=== PATIENT | male | born 1960 | race Caucasian/White ===

== ENCOUNTER → 2018-08-24 07:32 | Outpatient (CLI) | payer OTHER, SELFPAY ==
[2018-08-24 08:32] LABS: Hemoglobin A1C% w Est Avg Glu 9.1 % (4.0-6.0)
[2018-08-24 09:02] LABS: Alanine Aminotransferase 62 IU/L (21-72); Albumin 4.6 g/dL (3.5-5.0); Albumin Globulin Ratio 1.5 (1.0-2.8); Alkaline Phosphatase 77 U/L (38-126); Aspartate Aminotransferase 52 IU/L (17-59); BUN Creatinine Ratio 21.1 (6-22); Bilirubin Total 0.6 mg/dL (0.2-1.3); Blood Urea Nitrogen 19 mg/dL (9-20); Calcium 10.2 mg/dL (8.4-10.2); Carbon Dioxide 26 mmol/L (22-32); Chloride 104 mmol/L (98-107); Cholesterol 115 mg/dL (140-199); Estimated Glomerular Filt Rate > 60.0 mL/min (>60); Globulin 3.1 g/dL (1.7-4.1); Glucose 181 mg/dL (70-100); HDL Cholesterol 25 mg/dL (40-60); HEMOLYSIS < 15 (0-50); LDL Cholesterol Calculated 28 mg/dL (<100); Potassium 4.6 mmol/L (3.4-5.1); Sodium 143 mmol/L (137-145); Total Protein 7.7 g/dL (6.3-8.2); Triglycerides 309 mg/dL (35-150)
[2018-08-24 09:15] LABS: Creatinine Urine Random 218.7 mg/dL
[2018-08-24 09:17] LABS: Free T3, Triiodothyronine Free 3.92 pg/mL (2.77-5.27); Free T4, Direct Thyroxine 0.84 ng/dL (0.78-2.19); Microalbumi Creatinin Ratio Ur 78.1 ug/mg CR (<30); Microalbumin Urine Random 17.1 mg/dL (0-1.6)
[2018-08-24 09:20] LABS: Vitamin D 25 Hydroxy (D3) 41.1 ng/mL (30.0-100.0)
[2018-08-24 09:31] LABS: Thyroid Stimulating Hormone 7.35 uIU/mL (0.47-4.68)
== END ==
PROVIDERS: PCP Student in an Organized Health Care Education/Training Program; Visit Provider Student in an Organized Health Care Education/Training Program
DX: E11.9 Type 2 diabetes mellitus without complications (principal); Z79.4 Long term (current) use of insulin; I25.10 Atherosclerotic heart disease of native coronary artery without angina pectoris; E03.9 Hypothyroidism, unspecified; E66.01 Morbid (severe) obesity due to excess calories; I10 Essential (primary) hypertension; E55.9 Vitamin D deficiency, unspecified; Z79.899 Other long term (current) drug therapy
CPT/HCPCS: 36415; 80053; 80061; 82043; 82306; 82570; 83036; 84439; 84443; 84481

== ENCOUNTER → 2018-10-12 09:39 | Outpatient (CLI) | payer OTHER, SELFPAY ==
--- NOTE | 2018-10-12 | DI.US.S_ITS ---
PROCEDURE: US ARTERIAL DUPLEX LE BI INDICATIONS: NON HEALING SORE TECHNIQUE: Color and pulse Doppler interrogation was performed of both lower extremity arterial systems, with image documentation. COMPARISON: [facility], , ARTERIAL LOW.EXTREM.BILATERAL, 12/15/2016, 13:08. FINDINGS: Right lower extremity: Common femoral artery: 103 cm/sec, with triphasic flow. Deep femoral artery: 111 cm/sec, with triphasic flow. Proximal superficial femoral artery: 90 cm/sec, with triphasic flow. Mid superficial femoral artery: 163 cm/sec, with triphasic flow. Distal superficial femoral artery: 154 cm/sec, with triphasic flow. Popliteal artery: 171 cm/sec, with triphasic flow. Posterior tibial artery: 203 cm/sec, with triphasic flow. Anterior tibial artery/dorsalis pedis: 221 cm/sec, with nonphasic flow. Plaza-scale imaging description: Moderate scattered plaque. Left lower extremity: Common femoral artery: 116 cm/sec, with triphasic flow. Deep femoral artery: 131 cm/sec, with triphasic flow. Proximal superficial femoral artery: 109 cm/sec, with triphasic flow. Mid superficial femoral artery: 450 cm/sec, with biphasic flow. Distal superficial femoral artery: 76 cm/sec, with biphasic flow. Popliteal artery: 85 cm/sec, with triphasic flow. Posterior tibial artery: 170 cm/sec, with triphasic flow. Anterior tibial artery/dorsalis pedis: 54 cm/sec, with monophasic flow. Plaza-scale imaging description: Moderate scattered plaque. IMPRESSION: 1. 50-99% stenosis involving the mid left superficial femoral artery. 2. Less than 50% stenosis involving the proximal and mid right superficial femoral artery. 3. Bilateral small vessel disease. Dictated by: Bernardo Ortiz [facility] Interpreted: Frankie Grullon MD on 10/13/2018 at 16:19 Approved by: Frankie Grullon M.D. on 10/14/2018 at 11:10
--- NOTE | 2018-10-12 | DI.NM.S_ITS ---
PROCEDURE: NM MEREDITH PERF SPECT REST & STR Rest and exercise myocardial perfusion SPECT with gated imaging and ejection fraction RADIOPHARMACEUTICAL: 14.0 mCi Tc-99m sestamibi IV at rest and 24.8 mCi Tc-99m sestamibi IV at peak exercise. A one day-protocol was performed. 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 SPECT images were obtained. SPECT myocardial perfusion images were displayed in short axis, horizontal long axis, and vertical long axis views. Gated images were reviewed using Deskarma software. COMPARISON: None. CARDIAC STRESS: A standard Ole treadmill exercise tolerance test was performed by the patient under the supervision of an attending staff. The patient exercised for 3 minutes and 19 seconds raching 4.6 METs; functional aerobic impairment (DAVI) is +65% on sedentary scale. Hemodynamic data: There is normal blood pressure and heart rate response to exercise stress. Patient achieved 97% of maximum predicted heart rate at peak exercise. Symptoms: Patient denied chest pain during exercise. Significant dyspnea with exercise. EKG: Resting ECG shows sinus rhythm with RBBB. No diagnostic EKG changes of ischemia; no ectopy. The ST depressions noted by the treadmill ECG reader are part of the RBBB than true ST depressions. FINDINGS: Raw data: There is good myocardial labeling by radiotracer. No significant motion artifacts. Zqyl-tg-[id number] ratio is 0.48 (normal is less than 0.38 for sestamibi tracer, and less than 0.50 for thallium tracer). Left ventricle function: Gated images demonstrate normal left ventricle wall thickening. No segmental wall motion abnormality. No transient ischemic dilation; TID is 1.0 (normal less than 1.3). The left ventricle resting end-diastolic volume is 116 mL. Left ventricle stress ejection fraction is 50% while the resting value is 60%; normal values are above 45%. Myocardial perfusion: There is a small fixed defect at the apex that improves with prone imaging suggesting artifact but prior old infarct can not be excluded. There is a mildly intense fixed defect in the inferior wall that could be from prior non-transmural infarction. No ischemia. SSS 2. IMPRESSION: Abnormal stress test. No ischemia 1) Abnormal perfusion images. There is a small fixed defect at the apex that improves with prone imaging suggesting artifact but prior old infarct can not be excluded. There is a mildly intense fixed defect in the inferior wall that could be from prior non-transmural infarction. No ischemia. SSS 2. 2) Normal left ventricular size with normal systolic function (EF post stress 50%, resting EF 60%). 3) Lung-heart ratio is 0.48, suggesting elevated left side filling pressures. Consider echo for further evaluation. 4) No ECG evidence of ischemia. 5) No angina during the study. Significant dyspnea with exercise. 6) Severely reduced exercies tolerance (4.6 METs, DAVI +65%). Target heart rate achieved. Appropriate blood pressure response to exercise (rest BP 140/80mmHg, max BP 190/98mmHg). 7) No prior nuclear stress test avaliable for comparision. Dictated by: Sid Dominguez MD on 10/12/2018 at 16:59 Approved by: Sid Dominguez MD on 10/12/2018 at 17:08
--- NOTE | 2018-10-12 14:57 | P.PCN_ITS ---
Cardiac Stress Test Report Referral & Results Date Patient Seen: 10/12/18 Time Patient Seen: 14:30 Requesting provider: Sid Dominguez Indication: CAD Procedure Note: Today following both written and verbal informed consent the patient was exercised according to a standard Ole protocol patient went for a total of 3 minutes achieving a maximum heart rate of 159 maximum systolic blood pressure of 190. This is approximately 4.6 METS. Exercise was terminated at this point because of fatigue, dyspnea. Patient was also given Cardiolite through a previously started Hep-Lock IV by the clinical laboratory technician approximately 1 minute prior to the cessation of exercise. Patient had marked dyspnea and fatigue rapidly patient on starting exercise. Very poor exercise capacity. No symptoms of angina. Diffuse ST deviations in multiple leads present at rest and exacerbated exercise. Impression: High risk test. Will await perfusion imaging. Please note: Actual ECG tracings can be found in the PACS system.
== END ==
PROVIDERS: PCP Student in an Organized Health Care Education/Training Program; Visit Provider Internal Medicine Cardiovascular Disease
DX: I70.202 Unspecified atherosclerosis of native arteries of extremities, left leg (principal); R06.00 Dyspnea, unspecified
CPT/HCPCS: 78452; 93016; 93017; 93018; 93925; A9502

== ENCOUNTER → 2018-11-25 07:45 | Outpatient (CLI) | payer OTHER, SELFPAY ==
--- NOTE | 2018-11-25 | DI.ECHO.S_ITS ---
[facility] +---------+ Hospital +---------+ : : [address] : [address] : : : : [id number] : : : : Phone: [phone]+ Echocardiogram Report + + :Name: DUSTIN CUNHA Study Date: 11/25/2018 Height: 71 in : :[facility] Weight: 220 lb : : Gender: Male BSA: 2.2 m2 : :: 1960 Age: 58 yrs BP: 137/73 mmHg: :Reason For Study: DYSPNEA : : Performed By: Juanpablo Delgado : :Referring: AMARJIT DOMINGUEZ : + + Interpretation Summary 1) Normal left ventricular size and systolic function (EF 60-65%). 2) Normal right ventricular size and function. 3) No significant valvular abnormalities. 4) Compared to the Echo done 05/09/2014, no significant change. Procedure: A two-dimensional transthoracic echocardiogram with color flow and Doppler was performed. The study quality was technically good. Comparison is made with the echocardiogram of 05/09/14. The subcostal views were not obtained due to the patient's dense liver. The patient was in normal sinus rhythm during the exam. Left Ventricle: The left ventricle is normal in size. Left ventricular wall thickness is borderline increased. The ejection fraction is estimated to be 60-65%. Basal inferior wall may be hypokinetic (or variant of normal due to echo's limitation). Right Ventricle: The right ventricle is normal in size and function. Atria: Both atria are normal in size. The interatrial septum is intact with no evidence for an atrial septal defect. Mitral Valve: The mitral valve is normal in structure and function. There is trace mitral regurgitation. Aortic Valve: The aortic valve is trileaflet. The aortic valve opens well. There is no aortic valve stenosis. No aortic regurgitation is present. Tricuspid Valve: The tricuspid valve is normal in structure and function. No tricuspid regurgitation. Pulmonary artery pressures cannot be estimated because of the lack of a measurable TR jet velocity. Pulmonic Valve: The pulmonic valve is normal in structure and function. There is trace pulmonic regurgitation. Great Vessels: The aortic root is normal size. The ascending aorta is at the upper limits of normal in size. The pulmonary artery is normal size. The inferior vena cava was not well visualized. Pericardium/ Pleura There is no pericardial effusion. There is no pleural effusion. MMode/2D Measurements & Calculations LVIDd: 4.3 cm LVOT diam: 2.4 cm LVIDs: 2.3 cm Ao root diam: 3.8 cm FS: 47.6 % Aortic Jxn: 3.3 cm EPSS: 0.56 cm asc Aorta Diam: 3.7 cm IVSd: 1.00 cm Ao Arch Diam (Prox Trans): 2.2 cm LVPWd: 1.0 cm LV rob. diameter/BSA (cm/m^2): 2.0 LV sys. diameter/BSA (cm/m^2): 1.0 LA dimension: 3.5 cm RA long axis: 5.4 cm LA A2 area: 21.1 cm2 RA area: 16.5 cm2 LA A4 area: 16.9 cm2 RA vol: 43.0 ml LA length (vol): 5.9 cm RA : 19.6 ml/m2 LA vol: 51.8 ml LA vol index: 23.6 ml/m2 RVD1 (basal): 3.7 cm RVD2 (mid): 4.3 cm Doppler Measurements & Calculations Ao V2 max: 107.9 cm/sec LVOT Max Ab: 83.9 cm/sec Ao V2 mean: 81.3 cm/sec LV V1 max P.8 mmHg Ao max P.7 mmHg LV V1 VTI: 16.9 cm Ao mean P.8 mmHg HEBER(I,D): 3.7 cm2 Ao V2 VTI: 21.2 cm HEBER(V,D): 3.6 cm2 sev ratio: 0.80 HEBER indexed to BSA (cm^2/m^2): 1.7 MV E max ab: 45.3 cm/sec PA V2 max: 71.3 cm/sec MV A max ab: 77.9 cm/sec PA V2 mean: 52.0 cm/sec MV E/A: 0.58 PA mean P.2 mmHg Med Peak E' Ab: 4.1 cm/sec PA pr(Accel): 36.6 mmHg E/E' med: 11.0 PA Accel Time: 0.09 sec Lat Peak E' Ab: 7.9 cm/sec E/E' lat: 5.7 E/e' average: 8.3 MV dec time: 0.20 sec SV(LVOT): 78.6 ml Reading Physician:12:11 PM
== END ==
PROVIDERS: Family Provider Student in an Organized Health Care Education/Training Program; PCP Student in an Organized Health Care Education/Training Program; Visit Provider Internal Medicine Cardiovascular Disease
DX: R06.09 Other forms of dyspnea (principal); I25.10 Atherosclerotic heart disease of native coronary artery without angina pectoris
CPT/HCPCS: 93306

== ENCOUNTER → 2018-11-25 11:00 | Outpatient (CLI) | payer OTHER, SELFPAY ==
[2018-11-25 12:13] LABS: Hemoglobin A1C% w Est Avg Glu 8.4 % (4.0-6.0)
== END ==
PROVIDERS: PCP Student in an Organized Health Care Education/Training Program; Visit Provider Student in an Organized Health Care Education/Training Program
DX: E11.9 Type 2 diabetes mellitus without complications (principal); Z79.4 Long term (current) use of insulin
CPT/HCPCS: 36415; 83036

== ENCOUNTER 2018-12-07 09:14 | Inpatient (IN) | payer OTHER, SELFPAY ==
[2018-12-07] VITALS (15 sets, daily range): BP systolic 108–166; BP diastolic 67–89; PULSE 79–114; RESP 16–28; TEMP 36.8–37.5; O2SAT 89–97; BMI 32.8
--- NOTE | 2018-12-07 09:23 | DI.RAD.S_ITS ---
PROCEDURE: XR CHEST 2V INDICATIONS: Cough and fever TECHNIQUE: 2 views of the chest were acquired. COMPARISON: None. FINDINGS: Surgical changes and devices: None. Lungs and pleura: Patchy consolidation in the left lower lobe and minimal atelectasis versus consolidation in the right lower lobe. No pleural effusions or pneumothorax. Mediastinum: Mediastinal contours are normal. Heart size is normal. Bones and chest wall: No suspicious bony abnormalities. Soft tissues appear unremarkable. IMPRESSION: Focal pneumonia, left lower lobe. Minimal atelectasis versus Consolidation, right lower lobe. Comment: Progress films are recommended until clear. Dictated by: Dwayne Jonas M.D. on 12/07/2018 at 9:41 Approved by: Dwayne Jonas M.D. on 12/07/2018 at 9:42
--- NOTE | 2018-12-07 09:41 | ED.FEVER ---
HPI - Fever General Chief Complaint: Fever Stated Complaint: sob/fever x4 days Time Seen by Provider: 12/07/18 09:23 Source: patient and family Mode of arrival: Wheelchair Limitations: no limitations History of Present Illness HPI Narrative: 58-year-old male here for evaluation of cough, chest congestion, sinus congestion, fevers for the past several days. He states that it started with a upper respiratory infection is now moved to his chest. He denies any chest pain but states that he does get into coughing fits for has a hard time for him to breathe. No sore throat. Has not tried anything for symptoms prior to arrival. No prior underlying lung issues but has had cardiovascular disease. Related Data Home Medications Medication Instructions Recorded Confirmed TRUE METRIX GLUCOSE TEST STRIPS #1 ea 06/17/18 12/07/18 aspirin 81 mg tablet,delayed 81 mg PO DAILY 06/17/18 12/07/18 release Insulin R sliding scale #1 ea 08/31/18 12/07/18 atorvastatin 80 mg PO QPM 12/07/18 12/07/18 cholecalciferol (vitamin D3) 4,000 unit PO DAILY 12/07/18 12/07/18 [Vitamin D3] insulin glargine [Lantus U-100 45 unit SUBCUT BID 12/07/18 12/07/18 Insulin] lisinopril 20 mg PO BID 12/07/18 12/07/18 metoprolol tartrate 25 mg PO BID 12/07/18 12/07/18 multivitamin 1 tab PO DAILY 12/07/18 12/07/18 Previous Rx's Medication Instructions Recorded chlorthalidone 25 mg tablet 12.5 mg PO DAILY #45 tab 11/05/18 metformin 500 mg tablet 1,000 mg PO BID #360 tab 11/05/18 insulin regular human 100 unit/mL 45 unit IM QAC #180 ml 11/12/18 injection solution levothyroxine 50 mcg tablet 50 mcg PO DAILY #90 tab 11/25/18 Allergies Allergy/AdvReac Type Severity Reaction Status Date / Time No Known Drug Allergies Allergy Verified 12/07/18 09:26 Review of Systems Constitutional Constitutional: Reports fever(s) and Denies headache(s) ENT Ears, Nose, Mouth, and Throat: Denies headache(s) Cardiovascular Cardiovascular: Denies chest pain, Denies leg edema, Reports dyspnea and Reports dyspnea on exertion Respiratory Respiratory: Reports cough, Reports pain with cough, Reports dyspnea and Reports dyspnea on exertion Gastrointestinal Gastrointestinal: Denies abdominal pain, Denies nausea and Denies vomiting Genitourinary Genitourinary: Denies dysuria Musculoskeletal Musculoskeletal: Denies myalgias and Denies arthralgias Integumentary/Breasts Skin/Breast: Denies lesions and Denies rash Neurologic Neurologic: Denies confusion and Denies headache(s) Psychiatric Psychiatric: Denies confusion and Denies depression Hematologic/Lymphatic Hematologic/Lymphatic: Denies easy bleeding and Denies easy bruising Patient History Medical History Chicken pox (Resolved) Diabetes insipidus (Chronic ~2001) Diabetes mellitus (Chronic ~2001) Foot pain (Chronic ~1999) Fractures (Resolved) Hearing loss (Chronic ~1994) History of cardiovascular disorder (Chronic ~2013) Hypertension (Chronic ~2013) Hypothyroidism (Chronic) Low testosterone (Chronic) Past heart attack (Resolved ~2013) Pulmonary hypertension (Chronic ~2013) Rheumatic fever (Chronic) Shoulder pain (Chronic) Vision disorder (Chronic) Surgical History History of surgery (Resolved ~02/03/14) Family History (Updated 07/22/18 @ 21:58 by Karen Chamberlain) Father Diabetes mellitus Heart disease Hyperlipidemia Hypertension Mother Heart disease Hyperlipidemia Hypertension Grandfather Heart disease Hyperlipidemia Hypertension Stroke Grandmother Heart disease Hyperlipidemia Hypertension Grandfather Heart disease Grandmother Heart disease Social History household members: significant other Smoking Status: Never smoker alcohol intake: never Family History Father Diabetes mellitus Heart disease Hyperlipidemia Hypertension Mother Heart disease Hyperlipidemia Hypertension Grandfather Heart disease Hyperlipidemia Hypertension Stroke Grandmother Heart disease Hyperlipidemia Hypertension Grandfather Heart disease Grandmother Heart disease Social History household members: significant other Smoking Status: Never smoker alcohol intake: never alcohol intake frequency: 0-2 drinks per day Substance Use Type: does not use Exam Initial Vital Signs Initial Vital Signs: Vital Signs Temperature 98.6 F 12/07/18 09:15 Pulse Rate 91 H 12/07/18 09:15 Respiratory Rate 22 12/07/18 09:15 Blood Pressure 165/67 H 12/07/18 09:15 Pulse Oximetry 93 12/07/18 09:15 Const General: cooperative, well developed and well groomed Orientation: alert, awake and oriented x3 HENMT Head: normal to inspection and normocephalic Resp Effort & Inspection: not labored and tachypneic Cardio Rate: regular rate Rhythm: regular rhythm GI Inspection: non-distended Palpation: soft and No firm Skin Lesions: no lesions Rashes: no rashes Neuro General: alert and awake Cognition: normal cognition Speech: speech normal Extrem General: normal to inspection and capillary refill normal Psych Appearance: grossly normal and well kempt Scores GCS Cuco coma scale eye opening: Spontaneous Cucumber coma scale verbal response: Orientated Cucumber coma scale motor response: Obey commands Cucumber coma scale total score: 15 Course Orders Ordered: ED Orders 12/07/18 12:40 Basic Metabolic Panel Stat Complete Blood Count AUTO DIFF Stat Lactate (Lactic Acid) Stat Procalcitonin Stat 12/07/18 13:28 Blood Culture Stat Acetaminophen (Tylenol) 650 mg PO Q6HR PRN PRN Reason: As Needed for Fever/Mild Pain Last Admin: 12/07/18 14:52 Dose: 650 mg Documented by: JIMMY Albuterol (Ventolin) 2.5 mg INH [id number] PRN PRN Reason: Shortness Of Breath Stop: 12/17/18 14:11 Aspirin (Aspirin Ec) 81 mg PO DAILY [facility] Last Admin: 12/07/18 14:53 Dose: Not Given Documented by: JIMMY Atorvastatin Calcium (Lipitor) 80 mg PO BEDTIME [facility] Bisacodyl (Dulcolax) 10 mg MS DAILY PRN PRN Reason: Constipation Clopidogrel Bisulfate (Plavix) 75 mg PO DAILY [facility] Last Admin: 12/07/18 14:53 Dose: Not Given Documented by: JIMMY Dextrose (D50w) 25 gm IV PRN PRN; Protocol PRN Reason: Hypoglycemia Docusate Sodium (Colace) 100 mg PO BID [facility] Enoxaparin Sodium (Lovenox) 40 mg SUBCUT DAILY [facility] Last Admin: 12/07/18 14:52 Dose: 40 mg Documented by: JIMMY Sodium Chloride (Normal Saline 0.9%) 1,000 mls @ 125 mls/hr IV CONT [facility] Last Infusion: 12/07/18 14:45 Dose: 0 mls/hr Documented by: Infusion: 12/07/18 12:29 Dose: 0 mls/hr Documented by: Admin: 12/07/18 12:19 Dose: 125 mls/hr Documented by: COMFORT Ceftriaxone Sodium/Dextrose (Rocephin) 1 gm in 50 mls @ 100 mls/hr IV Q24H [facility] Last Admin: 12/07/18 14:48 Dose: 100 mls/hr Documented by: JIMMY Azithromycin 250 mg/ Dextrose 250 mls @ 250 mls/hr IV Q24H [facility] Lactated Ringer's (Lactated Ringers) 1,000 mls @ 125 mls/hr IV CONT [facility] Last Admin: 12/07/18 14:45 Dose: 125 mls/hr Documented by: JIMMY Insulin Aspart (Novolog Flexpen) 0 unit SUBCUT [facility]; Protocol Last Admin: 12/07/18 16:33 Dose: 3 unit Documented by: TYRA Cosigned by: WILLIAM Insulin Glargine (Lantus Solostar (Pen)) 45 unit SUBCUT BID [facility] Insulin Human Regular (Humulin R) 45 unit SUBCUT AC [facility] Last Admin: 12/07/18 16:33 Dose: 45 unit Documented by: TYRA Cosigned by: WILLIAM Levothyroxine Sodium (Synthroid) 50 mcg PO 0600 [facility] Lisinopril (Zestril) 20 mg PO BID [facility] Metoprolol Succinate (Toprol Xl) 25 mg PO BID [facility] Morphine Sulfate (Morphine) 2 mg IV Q4HR PRN PRN Reason: Pain, Moderate (4-6) Multivitamins (Tab-A-Dale) 1 tab PO DAILY [facility] Ondansetron HCl (Zofran) 4 mg IV Q8HR PRN PRN Reason: Nausea And Vomiting Sennosides (Senna) 17.2 mg PO BEDTIME [facility] Discontinued Medications Albuterol/Ipratropium (Duoneb) 3 ml INH NOW ONE Stop: 12/07/18 09:42 Last Admin: 12/07/18 09:59 Dose: 3 ml Documented by: SHEYLA Azithromycin (Zithromax) 500 mg PO NOW ONE Stop: 12/07/18 11:03 Last Admin: 12/07/18 12:19 Dose: 500 mg Documented by: COMFORT Influenza Virus Vaccine (Flu Vaccine) 0.5 ml IM .ONCE ONE Stop: 12/07/18 17:25 Last Admin: 12/07/18 17:48 Dose: 0.5 ml Documented by: WARD Vital Signs Vital signs: Vital Signs - 8 hr 12/07/18 10:47 Pulse Rate 114 H Respiratory Rate 28 H Pulse Oximetry 89 L MDM - Fever Lab Data Attestation: I reviewed the patient's lab results. Result diagrams: 12/07/18 14:34 12/07/18 14:34 Labs: Lab Results 12/07/18 Range/Units 09:25 Influenza A & B (PCR) Negative (Negative) Imaging Data Chest x-ray: Radiologist's impression: [address] [address] XRay Report Signed Patient: Chun Toure HMR#: [id number] : 2Acct:[id number] Age/Sex: 58 / MDate of Service: 12/07/18 Loc: ED Accession Number: [id number] Procedure: XR chest 2V Ordering Provider: Jason Hooper D.O. PROCEDURE: XR CHEST 2V INDICATIONS: Cough and fever TECHNIQUE: 2 views of the chest were acquired. COMPARISON: None. FINDINGS: Surgical changes and devices: None. Lungs and pleura: Patchy consolidation in the left lower lobe and minimal atelectasis versus consolidation in the right lower lobe. No pleural effusions or pneumothorax. Mediastinum: Mediastinal contours are normal. Heart size is normal. Bones and chest wall: No suspicious bony abnormalities. Soft tissues appear unremarkable. IMPRESSION: Focal pneumonia, left lower lobe. Minimal atelectasis versus Consolidation, right lower lobe. Comment: Progress films are recommended until clear. Dictated by: Dwayne Jonas M.D. on 12/07/2018 at 9:41 Approved by: Dwayne Jonas M.D. on 12/07/2018 at 9:42 [facility] Narrative Medical decision making narrative: Patient does not meet criteria for healthcare associated pneumonia. Sitting in the ER room patient's oxygen saturations on room air were in the low 90s. He was tachypneic. When we got him up to ambulate around the department his oxygen saturations dropped to the high 80s. He became very dyspneic. Did recover when he sat back down in the bed. He did receive an albuterol neb prior to this which she states only minimally improved his symptoms if at all. Chest x-ray does show left-sided pneumonia. He was given oral azithromycin in the emergency department. Discussed the case with Dr. Aquino. Will admit for further evaluation treatment. Discussed the admission with the patient expressed understanding and agreement. Discharge Plan Departure Patient Disposition: Admitted As Inpatient Clinical Impression: Hypoxia Pneumonia Qualifiers: Pneumonia type: due to unspecified organism Laterality: left Lung location: lower lobe of lung Qualified Code(s): J18.1 - Lobar pneumonia, unspecified organism Discharge Date/Time: 12/07/18 13:07 Admit Date/Time: 12/07/18 11:41 Admit Provider: Celi Aquino
[2018-12-07 09:46] LABS: Influenza A and B by PCR Rapid Negative (Negative)
[2018-12-07] MEDS: ALBUTEROL/IPRATROPIUM 3 ML AMPUL INH (09:59)
[2018-12-07] MEDS: AZITHROMYCIN 250 MG TABLET 500 MG PO (12:19)
[2018-12-07] MEDS: SODIUM CHLORIDE 0.9% 1,000 ML 125 ML IV (12:19)
[2018-12-07 13:06] LABS: Add Manual Diff / Slide Review NO; Basophils Absolute Auto 0 /uL (0-100); Basophils Percent Auto 0.3 % (0-2); Eosinophils Absolute Auto 100 /uL (0-450); Eosinophils Percent Auto 0.8 % (2-4); Hematocrit 39.7 % (41-53); Hemoglobin 13.5 g/dL (13.5-17.5); Lymphocytes Absolute Auto 900 /uL (1100-4500); Lymphocytes Percent Auto 8.7 % (25-40); Mean Corpuscular HGB Conc 34.1 % (30-36); Mean Corpuscular Hemoglobin 30.2 PG (26-34); Mean Corpuscular Volume 88.5 fL (80-100); Monocytes Absolute Auto 1000 /uL (0-900); Monocytes Percent Auto 9.7 % (3-14); Neutrophils Absolute Auto 8000 /uL (1500-7000); Neutrophils Percent Auto 80.5 % (50-75); Platelet Count 409 X10^3/uL (150-400); Red Blood Cell Count 4.48 X10^6/uL (4.5-5.9); Red Cell Distribution Width 13.8 % (11.6-14.8); White Blood Cell Count 9.9 X10^3/uL (4.5-11.0)
[2018-12-07 13:19] LABS: BUN Creatinine Ratio 23.8 (6-22); Blood Urea Nitrogen 19 mg/dL (9-20); Calcium 9.9 mg/dL (8.4-10.2); Carbon Dioxide 30 mmol/L (22-32); Chloride 90 mmol/L (98-107); Estimated Glomerular Filt Rate > 60.0 mL/min (>60); Glucose 171 mg/dL (70-100); HEMOLYSIS < 15 (0-50); Lactate (Lactic Acid) 2.3 mmol/L (0.7-2.1); Potassium 4.2 mmol/L (3.4-5.1); Sodium 135 mmol/L (137-145)
--- NOTE | 2018-12-07 14:15 | PM.HP.1 ---
History of Present Illness History of Present Illness Date Patient Seen: 12/07/18 Chief complaint: sob/fever x4 days Narrative: The patient is a 58-year-old male with a history of type 1 diabetes, complicated by diabetic neuropathy, hypertension, hypothyroidism, pulmonary hypertension, who was in his usual state of health until about 4 5 days ago. His had a URI which resolved in 1-2 days. Patient developed URI but then developed a persistent cough, nonproductive, fever, shortness of breath, and difficulty breathing. Patient had no hemoptysis. No headache. No runny nose, no sore throat aS he continued to have significant coughing with associated chest pain he was short of breath with minimal exertion. The patient was brought into the emergency room for evaluation. In the emergency room was found to have a left lower lobe infiltrate. The patient was found to have a room air sat of 90%. When the ambulated him he desaturated to 89%. His lactate was elevated at 2.3, patient was tachycardic with heart rate of 101, and given the hypoxia the patient was admitted to the hospital for further evaluation and treatment of community-acquired pneumonia. Patient History Medical History Chicken pox (Resolved) Diabetes insipidus (Chronic ~2001) Diabetes mellitus (Chronic ~2001) Foot pain (Chronic ~1999) Fractures (Resolved) Hearing loss (Chronic ~1994) History of cardiovascular disorder (Chronic ~2013) Hypertension (Chronic ~2013) Hypothyroidism (Chronic) Low testosterone (Chronic) Past heart attack (Resolved ~2013) Pulmonary hypertension (Chronic ~2013) Rheumatic fever (Chronic) Shoulder pain (Chronic) Vision disorder (Chronic) Surgical History History of surgery (Resolved ~02/03/14) Family History (Updated 07/22/18 @ 21:58 by Karen Chamberlain) Father Diabetes mellitus Heart disease Hyperlipidemia Hypertension Mother Heart disease Hyperlipidemia Hypertension Grandfather Heart disease Hyperlipidemia Hypertension Stroke Grandmother Heart disease Hyperlipidemia Hypertension Grandfather Heart disease Grandmother Heart disease Social History household members: significant other Smoking Status: Never smoker alcohol intake: never Family & Social History Family History Father Diabetes mellitus Heart disease Hyperlipidemia Hypertension Mother Heart disease Hyperlipidemia Hypertension Grandfather Heart disease Hyperlipidemia Hypertension Stroke Grandmother Heart disease Hyperlipidemia Hypertension Grandfather Heart disease Grandmother Heart disease Social History: household members significant other Prior Living Arrangements Apartment/Condo Safety & Behavioral: Feels Safe in Current Yes Environment Been Physically Hurt or No Threatened By a Person Suicidal Ideation Description None Suicide Plan Description No Plan Tobacco & Substance use: Smoking Status Never smoker alcohol intake never alcohol intake frequency 0-2 drinks per day Substance Use Type does not use Meds Home Medications and Allergies Home Medications Medication Instructions Recorded Confirmed Type TRUE METRIX GLUCOSE TEST STRIPS #1 ea 06/17/18 12/07/18 History aspirin 81 mg tablet,delayed 81 mg PO DAILY 06/17/18 12/07/18 History release Insulin R sliding scale #1 ea 08/31/18 12/07/18 History chlorthalidone 25 mg tablet 12.5 mg PO DAILY #45 tab 11/05/18 12/07/18 Rx metformin 500 mg tablet 1,000 mg PO BID #360 tab 11/05/18 12/07/18 Rx insulin regular human 100 unit/mL 45 unit IM QAC #180 ml 11/12/18 12/07/18 Rx injection solution levothyroxine 50 mcg tablet 50 mcg PO DAILY #90 tab 11/25/18 12/07/18 Rx atorvastatin 80 mg PO QPM 12/07/18 12/07/18 History cholecalciferol (vitamin D3) 4,000 unit PO DAILY 12/07/18 12/07/18 History [Vitamin D3] insulin glargine [Lantus U-100 45 unit SUBCUT BID 12/07/18 12/07/18 History Insulin] lisinopril 20 mg PO BID 12/07/18 12/07/18 History metoprolol tartrate 25 mg PO BID 12/07/18 12/07/18 History multivitamin 1 tab PO DAILY 12/07/18 12/07/18 History Allergies Allergy/AdvReac Type Severity Reaction Status Date / Time No Known Drug Allergies Allergy Verified 12/07/18 09:26 Review of Systems Review of Systems ROS Unobtainable: All systems reviewed & are unremarkable except as noted in HPI and below Exam Vital Signs (past 8 hours): - 12/07/18 09:15 12/07/18 10:05 12/07/18 10:14 Temperature 98.6 F Pulse Rate 91 H 102 H 95 H Respiratory Rate 22 20 20 Blood Pressure 165/67 H Blood Pressure [Left Arm] Pulse Oximetry 93 90 L 12/07/18 10:47 12/07/18 12:30 12/07/18 13:00 Temperature 99.5 F Pulse Rate 114 H 105 H 106 H Respiratory Rate 28 H 22 18 Blood Pressure 153/87 H Blood Pressure [Left Arm] 166/71 H Pulse Oximetry 89 L 91 92 12/07/18 13:20 12/07/18 13:40 12/07/18 14:04 Temperature 98.7 F Pulse Rate 106 H Respiratory Rate 18 Blood Pressure 153/87 H Blood Pressure [Left Arm] Pulse Oximetry 89 L 93 93 Oxygen Delivery Method Nasal Cannula Oxygen Flow Rate 2 Narrative Exam Narrative: Pleasant male ill-appearing resting comfortably in no obvious distress HEENT: Normocephalic atraumatic, extraocular muscles are intact, oropharynx reveals dry mucous membranes neck is supple, there is mildly tender anterior cervical adenopathy on the right. Lungs: Decreased breath sounds with scattered basilar rhonchi bilateral Cardiac exam: Tachycardic regular rate and rhythm normal S1-S2 Abdomen: Soft nontender nondistended without appreciable hepatosplenomegaly no rebound tenderness or board-like rigidity Extremities: And no edema Neuro exam: Cranial nerves 2-12 are intact, strength is symmetric and equal, sensation is grossly if attack, reflexes are brisk and equal gait is not assessed Skin exam: Multiple abrasions, bruising on the lower extremities bilaterally Psychiatric exam: Patient is awake alert and oriented, answers questions appropriately, has no delusions, no evidence of hallucinations. Objective Labs Result Diagrams: 12/07/18 12:40 12/07/18 12:40 Labs: Laboratory Results - last 24 hr 12/07/18 12/07/18 12/07/18 09:25 12:40 12:40 WBC 9.9 RBC 4.48 L Hgb 13.5 Hct 39.7 L MCV 88.5 MCH 30.2 MCHC 34.1 RDW 13.8 Plt Count 409 H Neut % (Auto) 80.5 H Lymph % (Auto) 8.7 L [place] % (Auto) 9.7 Eos % (Auto) 0.8 L Baso % (Auto) 0.3 Neut # (Auto) 8000 H Lymph # (Auto) 900 L [place] # (Auto) 1000 H Eos # (Auto) 100 Baso # (Auto) 0 Sodium Potassium Chloride Carbon Dioxide BUN Creatinine Estimated GFR BUN/Creatinine Ratio Glucose Lactate Calcium Procalcitonin 0.10 Influenza A & B (PCR) Negative 12/07/18 12/07/18 12:40 12:40 WBC RBC Hgb Hct MCV MCH MCHC RDW Plt Count Neut % (Auto) Lymph % (Auto) [place] % (Auto) Eos % (Auto) Baso % (Auto) Neut # (Auto) Lymph # (Auto) [place] # (Auto) Eos # (Auto) Baso # (Auto) Sodium 135 L Potassium 4.2 Chloride 90 L Carbon Dioxide 30 BUN 19 Creatinine 0.80 Estimated GFR > 60.0 BUN/Creatinine Ratio 23.8 H Glucose 171 H Lactate 2.3 H Calcium 9.9 Procalcitonin Influenza A & B (PCR) Assessment & Plan Assessment & Plan narrative: Impression 1. 58-year-old male admitted to the hospital with acute hypoxic respiratory failure secondary to community-acquired pneumonia. Patient presented with cough, fever, elevated lactate, he is tachycardic, given the hypoxia, patient likely has severe sepsis, secondary to community-acquired pneumonia. Chest x-ray confirms a left lower lobe infiltrate. Patient received 1 dose of azithromycin in the emergency room. He will be treated with IV ceftriaxone plus azithromycin, will continue IV hydration, will repeat his serum lactate, will obtain a respiratory panel, his influenza a and B have been negative thus far. Patient will remain on oxygen, will utilize albuterol as needed for wheezing. 2. Acute hypoxic respiratory failure, secondary to community-acquired pneumonia, continue oxygen and antibiotics 3. Type 1 diabetes, complicated by diabetic polyneuropathy, will continue his usual home dosing of insulin 4. Hypertension, continue his lisinopril and metoprolol 5. History of coronary disease, status post myocardial infarction, patient will continue on his aspirin, statin, beta-lu. 6. Hyperlipidemia, continue high-dose statin 7. Hypothyroidism, continue L-thyroxine Patient is a full code will note that his record accordingly.
[2018-12-07] MEDS: LACTATED RINGERS 1,000 ML 125 ML IV ×2 (14:45→23:49)
[2018-12-07 14:48] LABS: Add Manual Diff / Slide Review NO; Basophils Absolute Auto 0 /uL (0-100); Basophils Percent Auto 0.5 % (0-2); Eosinophils Absolute Auto 0 /uL (0-450); Eosinophils Percent Auto 0.5 % (2-4); Hematocrit 38.5 % (41-53); Hemoglobin 13.2 g/dL (13.5-17.5); Lymphocytes Absolute Auto 900 /uL (1100-4500); Lymphocytes Percent Auto 9.3 % (25-40); Mean Corpuscular HGB Conc 34.1 % (30-36); Mean Corpuscular Hemoglobin 29.9 PG (26-34); Mean Corpuscular Volume 87.7 fL (80-100); Monocytes Absolute Auto 800 /uL (0-900); Monocytes Percent Auto 8.9 % (3-14); Neutrophils Absolute Auto 7600 /uL (1500-7000); Neutrophils Percent Auto 80.8 % (50-75); Platelet Count 400 X10^3/uL (150-400); Red Blood Cell Count 4.39 X10^6/uL (4.5-5.9); Red Cell Distribution Width 13.7 % (11.6-14.8); White Blood Cell Count 9.5 X10^3/uL (4.5-11.0)
[2018-12-07] MEDS: CEFTRIAXONE 1 GM/50 ML FROZ.PIGGY IV (14:48)
[2018-12-07] MEDS: ENOXAPARIN 40 MG/0.4 ML SYRINGE SUBCUT (14:52)
[2018-12-07] MEDS: ACETAMINOPHEN 325 MG TABLET 650 MG PO ×2 (14:52→20:30)
[2018-12-07 14:58] LABS: Lactate (Lactic Acid) 2.3 mmol/L (0.7-2.1)
[2018-12-07 14:59] LABS: BUN Creatinine Ratio 21.3 (6-22); Blood Urea Nitrogen 17 mg/dL (9-20); Calcium 9.7 mg/dL (8.4-10.2); Carbon Dioxide 29 mmol/L (22-32); Chloride 90 mmol/L (98-107); Estimated Glomerular Filt Rate > 60.0 mL/min (>60); Glucose 192 mg/dL (70-100); HEMOLYSIS < 15 (0-50); Potassium 3.8 mmol/L (3.4-5.1); Sodium 134 mmol/L (137-145)
[2018-12-07 15:02] LABS: Reflexed Lactate in 2 Hours Y
--- NOTE | 2018-12-07 15:36 | PC.NURSE ---
Day Shift- Report from ED rec'd by RN Coordinator Carlos. Pt arrived to unit at 1300 into room 215 via stretcher. pt able to walk from stretcher to bed. Pt wanted to keep his sweatpants on and leave a shirt off due to being warm. oriented pt to call light, bed controls, IVF, need to ask for assistance with OOB movement. Pt reports 5/10 pain to anterior headache, ribs, lungs with coughing. Pt not producing any sputum at this time, aware of need for sputum sample. PRN Tylenol given at 1452. Evening RN aware to get RVP. Pt stated along with his Significant Other Lori (Jennyfer Simms) that she would be his surrogate decision maker if he was unable.
[2018-12-07] MEDS: INSULIN REGULAR 100 UNIT/ML 3 ML VIAL 45 UNIT SUBCUT (16:33)
[2018-12-07] MEDS: INSULIN ASPART 100 UNIT/ML INSULN PEN SUBCUT ×2 (16:33→20:45)
[2018-12-07 16:40] LABS: Reflexed Lactate in 2 Hours Y
[2018-12-07 17:35] LABS: Lactate 2HR (Lactic Acid Rflx) 1.6 mmol/L (0.7-2.1)
[2018-12-07] MEDS: INFLUENZA VACCINE 0.5 ML SYRINGE IM (17:48)
[2018-12-07 18:31] LABS: Adenovirus Not Detected (Not Detect); Bordetella pertussis Not Detected (Not Detect); Chlamydophila pneumoniae Not Detected (Not Detect); Coronavirus 229E Not Detected (Not Detect); Coronavirus HKU1 Not Detected (Not Detect); Coronavirus NL 63 Not Detected (Not Detect); Coronavirus OC43 Not Detected (Not Detect); Human Metapneumovirus Not Detected (Not Detect); Human Rhinovirus/Enterovirus Not Detected (Not Detect); Influenza A Not Detected (Not Detect); Influenza B Not Detected (Not Detect); Mycoplasma pneumoniae Detected (Not Detect); Parainfluenza Virus 1 Not Detected (Not Detect); Parainfluenza Virus 2 Not Detected (Not Detect); Parainfluenza Virus 3 Not Detected (Not Detect); Parainfluenza Virus 4 Not Detected (Not Detect); Respiratory Syncytial Virus Not Detected (Not Detect)
[2018-12-07] MEDS: ATORVASTATIN 20 MG TABLET 80 MG PO (20:31)
[2018-12-07] MEDS: INSULIN GLARGINE 100 UNIT/ML 3ML PEN 45 UNIT SUBCUT (20:45)
[2018-12-07] MEDS: LISINOPRIL 20 MG TABLET PO (20:50)
[2018-12-07] MEDS: BENZONATATE 100 MG CAPSULE 200 MG PO (22:08)
[2018-12-08] VITALS (13 sets, daily range): BP systolic 148–165; BP diastolic 86–93; PULSE 95–113; RESP 16–20; TEMP 36.3–36.9; O2SAT 88–96
[2018-12-08] MEDS: METOPROLOL ER 25 MG TABLET PO ×2 (04:56→21:24)
--- NOTE | 2018-12-08 05:23 | PC.NURSE ---
Pt. did not sleep last night. Hypertensive this morning 166/102 & rechecked B/P 150/90 & HR. 110. FRANCI David notified & informed Metoprolol 25 ER 2100 dose was held 12/07/18 Order received to administer 0900 dose of Metoprolol done & decreased IVF LR to 100 cc/hr done. Denies any pain or discomfort. Will monitor.
[2018-12-08] MEDS: LEVOTHYROXINE 50 MCG TABLET PO (05:43)
[2018-12-08] MEDS: guaiFENesin ER 600 MG TAB PO ×2 (05:44→18:34)
[2018-12-08] MEDS: ENOXAPARIN 40 MG/0.4 ML SYRINGE SUBCUT (08:31)
[2018-12-08] MEDS: ASPIRIN EC 81 MG TABLET PO (08:32)
[2018-12-08] MEDS: CLOPIDOGREL 75 MG TABLET PO (08:32)
[2018-12-08] MEDS: INSULIN ASPART 100 UNIT/ML INSULN PEN SUBCUT ×4 (08:34→21:25)
[2018-12-08] MEDS: INSULIN REGULAR 100 UNIT/ML 3 ML VIAL 45 UNIT SUBCUT ×3 (08:35→17:01)
[2018-12-08] MEDS: INSULIN GLARGINE 100 UNIT/ML 3ML PEN 45 UNIT SUBCUT ×2 (08:37→21:27)
[2018-12-08] MEDS: MULTIVITAMIN 1 TABLET 1 TAB PO (09:05)
[2018-12-08] MEDS: LISINOPRIL 20 MG TABLET PO ×2 (09:05→21:24)
[2018-12-08] MEDS: LACTATED RINGERS 1,000 ML 100 ML IV (09:07)
--- NOTE | 2018-12-08 11:34 | CM.DANOTE ---
DCP: Case received, EMR reviewed and met with patient. Introduced self and role. Was able to meet with patient and obtain some baseline health and activity information. DCP assessment/template completed with information currently available. Patient is a 58 year old male who admitted yesterday morning to the care of the hospitalist team. PCP: Dr. Ledezma. Payer: confirmed: [facility]. Patient came to the hospital via private vehicle from Thursday. He had been having some increased coughing and shortness of breath, as well as a fever for the past couple of days. Patient holds diagnosis of Pneumonia. He also has history of type 1 diabetes, as well as neuropathy. According to patient, his significant had an upper respiratory infection that she was getting over. Met with patient in his room. Alert and oriented, was coughing when this transit planner arrived. He is on oxygen currently. Prior to illness, confirmed with patient that he is independent at his baseline, and resides with his partner, Lori. Confirmed that his primary care provider is Dr. Ledezma at [facility]. P: DCP to continue to follow closely. Anticipate that patient will be here for the next couple of days. He is currently working with respiratory therapy. Carmen Del Valle, RN/Sheet Finisher
[2018-12-08] MEDS: AZITHROMYCIN 250 MG in DEXTROSE 5% IN WATER 250 ML IV (12:01)
--- NOTE | 2018-12-08 12:15 | PC.NURSE ---
Dr. Aquino saw patient. Patient states he feels less short of breath but chest feels tight. Dr. Aquino would like patient to have Albuterol treatment. RT notified. Patient NC removed per . Continuing to monitoring O2 sat and will reapply if under 92%
[2018-12-08 14:08] LABS: B Type Natriuretic Peptide < 100 (<100)
[2018-12-08 14:16] LABS: Procalcitonin 0.07 ng/mL (<0.5)
--- NOTE | 2018-12-08 14:53 | P.PN_ITS ---
Subjective Subjective Date Patient Seen: 12/08/18 Interval history: Patient is a 58-year-old male who was admitted to the hospital for left lower lobe pneumonia. His respiratory smear was positive for mycoplasma. The patient continues to have a cough, he is still short of breath, he continues to require some oxygen. Overall he feels a bit better. However he does report decreased appetite and is not eating very much. He still remains short of breath. Exam Vital Signs (past 8 hours): - 12/08/18 08:00 12/08/18 09:00 12/08/18 09:05 Temperature 97.4 F L Pulse Rate 95 H Respiratory Rate 16 Blood Pressure 165/92 H 165/92 H Pulse Oximetry 93 93 12/08/18 09:37 12/08/18 11:00 12/08/18 11:59 Temperature 97.4 F L Pulse Rate 101 H Respiratory Rate 18 Blood Pressure 148/90 H Pulse Oximetry 93 88 L 93 Oxygen Delivery Method Nasal Cannula Oxygen Flow Rate 1 Narrative Exam Narrative: Ill-appearing male resting in bed Lungs: Decreased breath sounds with diffuse rhonchi and crackles bilaterally Cardiac exam: Regular rate and rhythm normal S1-S2 Abdomen: Soft nontender nondistended without hepatosplenomegaly Extremities: No edema Objective Labs Result Diagrams: 12/07/18 14:34 12/07/18 14:34 Labs: Laboratory Results - last 24 hr 12/07/18 12/07/18 12/07/18 14:34 14:34 14:34 WBC 9.5 RBC 4.39 L Hgb 13.2 L Hct 38.5 L MCV 87.7 MCH 29.9 MCHC 34.1 RDW 13.7 Plt Count 400 Neut % (Auto) 80.8 H Lymph % (Auto) 9.3 L [place] % (Auto) 8.9 Eos % (Auto) 0.5 L Baso % (Auto) 0.5 Neut # (Auto) 7600 H Lymph # (Auto) 900 L [place] # (Auto) 800 Eos # (Auto) 0 Baso # (Auto) 0 Sodium 134 L Potassium 3.8 Chloride 90 L Carbon Dioxide 29 BUN 17 Creatinine 0.80 Estimated GFR > 60.0 BUN/Creatinine Ratio 21.3 Glucose 192 H Lactate 2.3 H Calcium 9.7 B-Natriuretic Peptide Procalcitonin Chlamy pneumoniae PCR Adenovirus (PCR) B.parapertussis DNA PCR Coronavirus OC43 (PCR) Coronavirus HKU1 (PCR) Coronavirus 229E (PCR) Coronavirus NL63 (PCR) Human Metapneumovir PCR Influenza Type A (PCR) Influenza Type B (PCR) M. pneumoniae (PCR) Parainfluenza 1 (PCR) Parainfluenza 2 (PCR) Parainfluenza 3 (PCR) Parainfluenza 4 (PCR) RSV (PCR) Entero/Rhino (PCR) 12/07/18 12/07/18 12/08/18 16:00 17:15 13:30 WBC RBC Hgb Hct MCV MCH MCHC RDW Plt Count Neut % (Auto) Lymph % (Auto) [place] % (Auto) Eos % (Auto) Baso % (Auto) Neut # (Auto) Lymph # (Auto) [place] # (Auto) Eos # (Auto) Baso # (Auto) Sodium Potassium Chloride Carbon Dioxide BUN Creatinine Estimated GFR BUN/Creatinine Ratio Glucose Lactate 1.6 Calcium B-Natriuretic Peptide Procalcitonin 0.07 Chlamy pneumoniae PCR Not detected Adenovirus (PCR) Not detected B.parapertussis DNA PCR Not detected Coronavirus OC43 (PCR) Not detected Coronavirus HKU1 (PCR) Not detected Coronavirus 229E (PCR) Not detected Coronavirus NL63 (PCR) Not detected Human Metapneumovir PCR Not detected Influenza Type A (PCR) Not detected Influenza Type B (PCR) Not detected M. pneumoniae (PCR) Detected H Parainfluenza 1 (PCR) Not detected Parainfluenza 2 (PCR) Not detected Parainfluenza 3 (PCR) Not detected Parainfluenza 4 (PCR) Not detected RSV (PCR) Not detected Entero/Rhino (PCR) Not detected 12/08/18 13:30 WBC RBC Hgb Hct MCV MCH MCHC RDW Plt Count Neut % (Auto) Lymph % (Auto) [place] % (Auto) Eos % (Auto) Baso % (Auto) Neut # (Auto) Lymph # (Auto) [place] # (Auto) Eos # (Auto) Baso # (Auto) Sodium Potassium Chloride Carbon Dioxide BUN Creatinine Estimated GFR BUN/Creatinine Ratio Glucose Lactate Calcium B-Natriuretic Peptide < 100 Procalcitonin Chlamy pneumoniae PCR Adenovirus (PCR) B.parapertussis DNA PCR Coronavirus OC43 (PCR) Coronavirus HKU1 (PCR) Coronavirus 229E (PCR) Coronavirus NL63 (PCR) Human Metapneumovir PCR Influenza Type A (PCR) Influenza Type B (PCR) M. pneumoniae (PCR) Parainfluenza 1 (PCR) Parainfluenza 2 (PCR) Parainfluenza 3 (PCR) Parainfluenza 4 (PCR) RSV (PCR) Entero/Rhino (PCR) Assessment & Plan Assessment & Plan narrative: Impression 1. Acute hypoxemic respiratory failure, secondary to pneumonia. The patient is making improvement. He still requires oxygen as at times he will desaturate. He is getting nebulizer treatment as well. 2. Community-acquired pneumonia secondary to mycoplasma. The patient ceftriaxone will be discontinued. He will continue azithromycin. 3. Type 1 diabetes, suboptimal control. Will continue his home regimen. Suspect increasing blood sugars related to his underlying illness 4. Hypertension, present on admission will continue his usual home medications but hold chlorthalidone in the hospital. 5. Coronary disease status post myocardial infarction. Continue usual home medication 6. Hyperlipidemia, continue atorvastatin 7. Hypothyroidism, continue L-thyroxine Anticipate the patient will be able to be discharged home once he is no longer hypoxic on room air. Will continue azithromycin oxygen nebulizer treatments for now.
[2018-12-08] MEDS: LACTATED RINGERS 1,000 ML 84 ML IV ×2 (16:11→21:34)
[2018-12-08] MEDS: ATORVASTATIN 20 MG TABLET 80 MG PO (21:23)
[2018-12-08] MEDS: DOCUSATE 100 MG CAPSULE PO (21:24)
[2018-12-08] MEDS: SENNOSIDES 8.6 MG TABLET 17.2 MG PO (21:25)
[2018-12-09] VITALS (7 sets, daily range): BP systolic 135–160; BP diastolic 79–94; PULSE 71–95; RESP 16–20; TEMP 36.5–36.9; O2SAT 91–95
[2018-12-09] MEDS: ACETAMINOPHEN 325 MG TABLET 650 MG PO ×2 (02:06→06:30)
--- NOTE | 2018-12-09 02:50 | PC.NURSE ---
Pt. sleeping now after medicated with 650 mg. of Tylenol for KAMARA. Continue to cough intermittently, but to early for cough medications @ 0200. Will cont. POC & monitor.
[2018-12-09] MEDS: LEVOTHYROXINE 50 MCG TABLET PO (05:59)
[2018-12-09 07:01] LABS: Add Manual Diff / Slide Review NO; Basophils Absolute Auto 100 /uL (0-100); Basophils Percent Auto 0.6 % (0-2); Eosinophils Absolute Auto 200 /uL (0-450); Eosinophils Percent Auto 2.2 % (2-4); Hematocrit 37.7 % (41-53); Hemoglobin 12.8 g/dL (13.5-17.5); Lymphocytes Absolute Auto 1300 /uL (1100-4500); Lymphocytes Percent Auto 14.6 % (25-40); Mean Corpuscular HGB Conc 33.9 % (30-36); Mean Corpuscular Hemoglobin 30.4 PG (26-34); Mean Corpuscular Volume 89.7 fL (80-100); Monocytes Absolute Auto 800 /uL (0-900); Monocytes Percent Auto 9.4 % (3-14); Neutrophils Absolute Auto 6500 /uL (1500-7000); Neutrophils Percent Auto 73.2 % (50-75); Platelet Count 426 X10^3/uL (150-400); Red Blood Cell Count 4.21 X10^6/uL (4.5-5.9); Red Cell Distribution Width 13.6 % (11.6-14.8); White Blood Cell Count 8.9 X10^3/uL (4.5-11.0)
[2018-12-09 07:09] LABS: BUN Creatinine Ratio 18.6 (6-22); Blood Urea Nitrogen 13 mg/dL (9-20); Calcium 9.9 mg/dL (8.4-10.2); Carbon Dioxide 30 mmol/L (22-32); Chloride 98 mmol/L (98-107); Estimated Glomerular Filt Rate > 60.0 mL/min (>60); Glucose 141 mg/dL (70-100); HEMOLYSIS < 15 (0-50); Potassium 3.8 mmol/L (3.4-5.1); Sodium 137 mmol/L (137-145)
--- NOTE | 2018-12-09 09:03 | PM.DS.1 ---
History of Present Illness History of Present Illness Chief complaint: sob/fever x4 days Narrative: The patient is a 58-year-old male with a history of type 1 diabetes, complicated by diabetic neuropathy, hypertension, hypothyroidism, pulmonary hypertension, who was in his usual state of health until about 4 5 days ago. His had a URI which resolved in 1-2 days. Patient developed URI but then developed a persistent cough, nonproductive, fever, shortness of breath, and difficulty breathing. Patient had no hemoptysis. No headache. No runny nose, no sore throat aS he continued to have significant coughing with associated chest pain he was short of breath with minimal exertion. The patient was brought into the emergency room for evaluation. In the emergency room was found to have a left lower lobe infiltrate. The patient was found to have a room air sat of 90%. When the ambulated him he desaturated to 89%. His lactate was elevated at 2.3, patient was tachycardic with heart rate of 101, and given the hypoxia the patient was admitted to the hospital for further evaluation and treatment of community-acquired pneumonia. Discharge Providers Provider Date of admission: 12/07/18 11:41 Discharge Date: 12/09/18 Primary care physician: Chun Ledezma MD Consults: 12/07/18 13:40 Consult to Respiratory Therapy Evaluate & Treat Comment: Physician Instructions: Evaluate and treat Discharge provider: Celi Aquino MD Summary Hospital Course Discharge Diagnosis: 1. Acute hypoxic respiratory failure, present on admission 2. Mycoplasma pneumonia, present on admission 3. Type 1 diabetes, chronic 4. Hyperlipidemia 5. Hypertension 6. Hypothyroidism Hospital Course: The patient is a 58-year-old male with a history of type 1 diabetes, hyperlipidemia, hypertension, hypothyroidism who was ill for 4-5 days prior to admission. He presented with acute respiratory hypoxic failure. O2 sats were 89% with ambulation. The patient was found to have a left lower lobe pneumonia. Respiratory virus pills were positive for mycoplasma. Patient was treated with azithromycin. He continued to have a cough and some shortness of breath. He required nebulizer treatments. The patient received Mucinex which help with his sputum. He also had improvement in his oxygenation. Overall his appetite improved. Patient was deemed appropriate for discharge home. Exam Vital Signs (past 8 hours): - 12/09/18 04:15 12/09/18 07:35 Temperature 97.7 F 97.7 F Pulse Rate 73 71 Respiratory Rate 20 17 Blood Pressure 135/79 147/84 H Pulse Oximetry 94 94 Oxygen Delivery Method Nasal Cannula Oxygen Flow Rate 1 Narrative Exam Narrative: Pleasant male resting comfortably in no obvious distress, room air saturation 94% at rest Lungs: Decreased breath sounds, clear without rhonchi crackles or wheezes Cardiac exam: Regular rate and rhythm normal S1-S2 Abdomen: Soft nontender nondistended Extremities: No edema Objective Labs Result Diagrams: 12/09/18 06:35 12/09/18 06:35 Labs: Laboratory Results - last 24 hr 12/08/18 12/08/18 12/09/18 13:30 13:30 06:35 WBC 8.9 RBC 4.21 L Hgb 12.8 L Hct 37.7 L MCV 89.7 MCH 30.4 MCHC 33.9 RDW 13.6 Plt Count 426 H Neut % (Auto) 73.2 Lymph % (Auto) 14.6 L [place] % (Auto) 9.4 Eos % (Auto) 2.2 Baso % (Auto) 0.6 Neut # (Auto) 6500 Lymph # (Auto) 1300 [place] # (Auto) 800 Eos # (Auto) 200 Baso # (Auto) 100 Sodium Potassium Chloride Carbon Dioxide BUN Creatinine Estimated GFR BUN/Creatinine Ratio Glucose Calcium B-Natriuretic Peptide < 100 Procalcitonin 0.07 12/09/18 06:35 WBC RBC Hgb Hct MCV MCH MCHC RDW Plt Count Neut % (Auto) Lymph % (Auto) [place] % (Auto) Eos % (Auto) Baso % (Auto) Neut # (Auto) Lymph # (Auto) [place] # (Auto) Eos # (Auto) Baso # (Auto) Sodium 137 Potassium 3.8 Chloride 98 Carbon Dioxide 30 BUN 13 Creatinine 0.70 Estimated GFR > 60.0 BUN/Creatinine Ratio 18.6 Glucose 141 H Calcium 9.9 B-Natriuretic Peptide Procalcitonin Discharge Plan Discharge Plan Patient Disposition: Home Discharge Med Rec/Prescriptions Prescriptions: New benzonatate 100 mg Capsule 200 mg PO TID PRN (Reason: Cough) 5 Days RF: 0 guaifenesin [Mucus Relief ER] 600 mg Tablet Extended Release 12hr 600 mg PO Q12HR PRN (Reason: Cough) Qty: 5 RF: 0 azithromycin 250 mg tablet 250 mg PO DAILY 5 Days RF: 0 albuterol sulfate 90 mcg/actuation HFA aerosol inhaler 1 inhalation INHALATION QID PRN (Reason: shortness of breath) 7 Days Qty: 8 RF: 0 Continued chlorthalidone 25 mg tablet 12.5 mg PO DAILY Qty: 45 RF: 1 metformin 500 mg tablet 1,000 mg PO BID Qty: 360 RF: 1 Novolin R Regular U-100 Insuln 100 unit/mL solution 45 unit IM QAC Qty: 180 RF: 5 levothyroxine 50 mcg tablet 50 mcg PO DAILY Qty: 90 RF: 3 aspirin 81 mg tablet,delayed release (DR/EC) 81 mg PO DAILY RF: 0 metoprolol tartrate 25 mg Tablet 25 mg PO BID RF: 0 multivitamin Tablet 1 tab PO DAILY RF: 0 cholecalciferol (vitamin D3) [Vitamin D3] 2,000 unit Capsule 4,000 unit PO DAILY RF: 0 atorvastatin 80 mg tablet 80 mg PO QPM RF: 0 Lantus U-100 Insulin 100 unit/mL solution 45 unit SUBCUT BID RF: 0 lisinopril 40 mg tablet 20 mg PO BID RF: 0 No Action (DME) TRUE METRIX GLUCOSE TEST STRIPS Qty: 1 RF: 0 (DME) Insulin R sliding scale Qty: 1 RF: 0 Follow up/Referrals: Chun Ledezma MD [Primary Care Provider] - Provider Discharge Instructions Diet: Carb-consistent/Diabetic, Low-sodium and Low-cholesterol Activity: as tolerated Oxygen: not indicated Skin/Wound/Dressing Care Report to your healthcare provider any signs of infection, such as:: chills, fever and night sweats Discharge Data Primary Care Provider: Chun Ledezma
[2018-12-09] MEDS: LISINOPRIL 20 MG TABLET PO (10:39)
[2018-12-09] MEDS: MULTIVITAMIN 1 TABLET 1 TAB PO (10:39)
[2018-12-09] MEDS: METOPROLOL ER 25 MG TABLET PO (10:41)
[2018-12-09] MEDS: CLOPIDOGREL 75 MG TABLET PO (10:41)
[2018-12-09] MEDS: ASPIRIN EC 81 MG TABLET PO (10:41)
[2018-12-09] MEDS: INSULIN GLARGINE 100 UNIT/ML 3ML PEN 45 UNIT SUBCUT (10:43)
[2018-12-09] MEDS: INSULIN REGULAR 100 UNIT/ML 3 ML VIAL 45 UNIT SUBCUT (10:45)
[2018-12-09] MEDS: guaiFENesin ER 600 MG TAB PO (12:58)
--- NOTE | 2018-12-09 15:05 | PC.NURSE ---
DISCHARGE: PATIENT DC'D W/ ALL BELONGINGS, PAPERWORK AND SCRIPTS AND PRIORITY BOARDING PASS TO THURSDAY HARBOR WITH SPOUSE AFTER FULL REVIEW OF ALL DC INSTRUCTIONS W/ PATIENT. LEFT BY WC AT 1340 IN NO S/SX'S OF DISTRESS.
== END 2018-12-09 13:40 | disposition home or self-care (01) | DRG 871 ==
LOC: ED 11:06 → AC 11:42
PROVIDERS: Admitting Provider Internal Medicine; Emergency Provider Emergency Medicine; PCP Student in an Organized Health Care Education/Training Program; Visit Provider Internal Medicine
DX: A41.9 Sepsis, unspecified organism (principal); J96.01 Acute respiratory failure with hypoxia; J15.7 Pneumonia due to Mycoplasma pneumoniae; R65.20 Severe sepsis without septic shock; E10.42 Type 1 diabetes mellitus with diabetic polyneuropathy; Z79.4 Long term (current) use of insulin; E03.9 Hypothyroidism, unspecified; I10 Essential (primary) hypertension; I27.20 Pulmonary hypertension, unspecified; I25.10 Atherosclerotic heart disease of native coronary artery without angina pectoris; E78.5 Hyperlipidemia, unspecified
CPT/HCPCS: 36415; 71046; 80048; 82962; 83605; 83880; 84145; 85025; 87040; 87400; 87502; 87633; 90471; 90656; 94640; 94762; 96361; 96365; 96372; 99283; 99284; J1650; Q2038

== ENCOUNTER → 2018-12-16 10:08 | Outpatient (CLI) | payer OTHER, SELFPAY ==
[2018-12-07 13:20] VITALS: BMI 32.8
[2018-12-16 12:36] LABS: Creatinine Urine Random 81.4 mg/dL
[2018-12-16 12:40] LABS: Microalbumi Creatinin Ratio Ur 63.8 ug/mg CR (<30); Microalbumin Urine Random 5.2 mg/dL (0-1.6)
== END ==
PROVIDERS: PCP Student in an Organized Health Care Education/Training Program; Visit Provider Student in an Organized Health Care Education/Training Program
DX: E11.9 Type 2 diabetes mellitus without complications (principal); Z79.4 Long term (current) use of insulin
CPT/HCPCS: 82043; 82570

== ENCOUNTER → 2019-03-03 09:20 | Outpatient (CLI) | payer MEDICARE, SELFPAY ==
[2019-01-24 08:42] VITALS: BMI 32.8
[2019-03-03 09:53] LABS: Hemoglobin A1C% w Est Avg Glu 8.1 % (4.0-6.0)
[2019-03-03 09:58] LABS: Hematocrit 45.2 % (41-53); Hemoglobin 15.3 g/dL (13.5-17.5); Mean Corpuscular HGB Conc 33.9 % (30-36); Mean Corpuscular Hemoglobin 30.3 PG (26-34); Mean Corpuscular Volume 89.2 fL (80-100); Platelet Count 273 X10^3/uL (150-400); Red Blood Cell Count 5.07 X10^6/uL (4.5-5.9); Red Cell Distribution Width 14.6 % (11.6-14.8); White Blood Cell Count 8.6 X10^3/uL (4.5-11.0)
[2019-03-03 10:18] LABS: Blood Urea Nitrogen 17 mg/dL (9-20); Estimated Glomerular Filt Rate > 60.0 mL/min (>60)
== END ==
PROVIDERS: PCP Student in an Organized Health Care Education/Training Program; Visit Provider Student in an Organized Health Care Education/Training Program
DX: E11.21 Type 2 diabetes mellitus with diabetic nephropathy (principal); D63.8 Anemia in other chronic diseases classified elsewhere; Z79.4 Long term (current) use of insulin
CPT/HCPCS: 36415; 82565; 83036; 84520; 85027

== ENCOUNTER → 2019-11-09 11:08 | Outpatient (CLI) | payer MEDICARE, SELFPAY ==
[2019-01-24 08:42] VITALS: BMI 32.8
[2019-11-09 12:57] LABS: Hemoglobin A1C% w Est Avg Glu 8.1 % (4.0-6.0)
[2019-11-09 13:03] LABS: Blood Urea Nitrogen 16 mg/dL (9-20); Calcium 9.8 mg/dL (8.4-10.2); Carbon Dioxide 26 mmol/L (22-32); Chloride 102 mmol/L (98-107); Estimated Glomerular Filt Rate > 60.0 mL/min (>60); Glucose 148 mg/dL (70-100); HEMOLYSIS < 15 (0-50); Potassium 4.1 mmol/L (3.4-5.1); Sodium 139 mmol/L (137-145)
== END ==
PROVIDERS: PCP Student in an Organized Health Care Education/Training Program; Referring Provider Student in an Organized Health Care Education/Training Program; Visit Provider Student in an Organized Health Care Education/Training Program
DX: E11.9 Type 2 diabetes mellitus without complications (principal); Z79.4 Long term (current) use of insulin
CPT/HCPCS: 36415; 80048; 83036; 84153

== ENCOUNTER → 2020-02-20 09:40 | Outpatient (CLI) | payer MEDICARE, SELFPAY ==
[2019-01-24 08:42] VITALS: BMI 32.8
[2020-02-20 10:44] LABS: Hemoglobin A1C% w Est Avg Glu 8.6 % (4.0-6.0)
[2020-02-20 11:41] LABS: Creatinine Urine Random 106.6 mg/dL
[2020-02-20 11:45] LABS: Microalbumi Creatinin Ratio Ur 91.9 ug/mg CR (<30); Microalbumin Urine Random 9.8 mg/dL (0-1.6)
== END ==
PROVIDERS: PCP Student in an Organized Health Care Education/Training Program; Referring Provider Student in an Organized Health Care Education/Training Program; Visit Provider Student in an Organized Health Care Education/Training Program
DX: E11.9 Type 2 diabetes mellitus without complications (principal); Z79.4 Long term (current) use of insulin
CPT/HCPCS: 36415; 82043; 82570; 83036

== ENCOUNTER → 2020-03-27 09:52 | Outpatient (CLI) | payer MEDICARE, SELFPAY ==
[2019-01-24 08:42] VITALS: BMI 32.8
[2020-03-27 10:54] LABS: BUN Creatinine Ratio 23.5 (6-22); Blood Urea Nitrogen 20 mg/dL (9-20); Carbon Dioxide 24 mmol/L (22-32); Chloride 101 mmol/L (98-107); Cholesterol 120 mg/dL (140-199); Estimated Glomerular Filt Rate > 60.0 mL/min (>60); Glucose 186 mg/dL (70-100); HDL Cholesterol 25 mg/dL (40-60); Potassium 4.4 mmol/L (3.4-5.1); Sodium 136 mmol/L (137-145)
[2020-03-27 10:58] LABS: Add Manual Diff / Slide Review NO; Basophils Absolute Auto 100 /uL (0-100); Basophils Percent Auto 0.8 % (0-2); Eosinophils Absolute Auto 400 /uL (0-450); Eosinophils Percent Auto 5.7 % (2-4); Hemoglobin 15.1 g/dL (13.5-17.5); Lymphocytes Absolute Auto 2000 /uL (1100-4500); Lymphocytes Percent Auto 26.5 % (25-40); Mean Corpuscular HGB Conc 33.7 % (30-36); Mean Corpuscular Hemoglobin 30.2 PG (26-34); Mean Corpuscular Volume 89.8 fL (80-100); Monocytes Absolute Auto 600 /uL (0-900); Monocytes Percent Auto 8.4 % (3-14); Neutrophils Absolute Auto 4400 /uL (1500-7000); Neutrophils Percent Auto 58.6 % (50-75); Platelet Count 240 X10^3/uL (150-400); Red Blood Cell Count 5.01 X10^6/uL (4.5-5.9); Red Cell Distribution Width 13.7 % (11.6-14.8); White Blood Cell Count 7.6 X10^3/uL (4.5-11.0)
[2020-03-27 11:02] LABS: HEMOLYSIS 24 (0-50)
[2020-03-27 11:05] LABS: Triglycerides 589 mg/dL (35-150)
== END ==
PROVIDERS: PCP Student in an Organized Health Care Education/Training Program; Referring Provider Internal Medicine Cardiovascular Disease; Visit Provider Internal Medicine Cardiovascular Disease
DX: I10 Essential (primary) hypertension (principal); I25.10 Atherosclerotic heart disease of native coronary artery without angina pectoris
CPT/HCPCS: 36415; 80048; 80061; 85025

== ENCOUNTER → 2020-04-03 07:41 | Outpatient (CLI) | payer MEDICARE, SELFPAY ==
[2019-01-24 08:42] VITALS: BMI 32.8
[2020-04-03 08:52] LABS: Cholesterol 111 mg/dL (140-199); HDL Cholesterol 26 mg/dL (40-60); LDL Cholesterol Calculated 27 mg/dL (<100); Triglycerides 288 mg/dL (35-150)
== END ==
PROVIDERS: PCP Student in an Organized Health Care Education/Training Program; Referring Provider Internal Medicine Cardiovascular Disease; Visit Provider Internal Medicine Cardiovascular Disease
DX: E78.2 Mixed hyperlipidemia (principal)
CPT/HCPCS: 36415; 80061

== ENCOUNTER → 2020-04-30 08:31 | Outpatient (CLI) | payer MEDICARE, SELFPAY ==
[2019-01-24 08:42] VITALS: BMI 32.8
[2020-04-30 09:19] LABS: Hemoglobin A1C% w Est Avg Glu 8.8 % (4.0-6.0)
[2020-04-30 09:29] LABS: BUN Creatinine Ratio 24.1 (6-22); Blood Urea Nitrogen 20 mg/dL (9-20); Estimated Glomerular Filt Rate > 60.0 mL/min (>60)
== END ==
PROVIDERS: PCP Student in an Organized Health Care Education/Training Program; Referring Provider Student in an Organized Health Care Education/Training Program; Visit Provider Student in an Organized Health Care Education/Training Program
DX: E11.29 Type 2 diabetes mellitus with other diabetic kidney complication (principal); R80.9 Proteinuria, unspecified
CPT/HCPCS: 36415; 82565; 83036; 84520

== ENCOUNTER → 2020-05-24 11:08 | Outpatient (CLI) | payer MEDICARE, SELFPAY ==
[2020-05-24] MEDS: COVID-19 VACC #1, MRNA(MOD) 100 MCG/0.5 ML VIAL IM (11:13)
== END ==
PROVIDERS: Visit Provider Internal Medicine
DX: Z23 Encounter for immunization (principal)
CPT/HCPCS: 0011A; 91301

== ENCOUNTER → 2020-06-21 10:57 | Outpatient (CLI) | payer MEDICARE, SELFPAY ==
[2019-01-24 08:42] VITALS: BMI 32.8
[2020-06-21] MEDS: COVID-19 VACC #2, MRNA(MOD) 100 MCG/0.5 ML VIAL IM (11:01)
== END ==
PROVIDERS: PCP Student in an Organized Health Care Education/Training Program; Visit Provider Internal Medicine
DX: Z23 Encounter for immunization (principal)
CPT/HCPCS: 0012A; 91301

== ENCOUNTER → 2020-07-31 09:56 | Outpatient (CLI) | payer MEDICARE, SELFPAY ==
[2019-01-24 08:42] VITALS: BMI 32.8
[2020-07-31 10:31] LABS: BUN Creatinine Ratio 28.9 (6-22); Blood Urea Nitrogen 24 mg/dL (9-20); Estimated Glomerular Filt Rate > 60.0 mL/min (>60)
[2020-07-31 10:39] LABS: Hemoglobin A1C% w Est Avg Glu 8.8 % (4.0-6.0)
== END ==
PROVIDERS: PCP Student in an Organized Health Care Education/Training Program; Referring Provider Student in an Organized Health Care Education/Training Program; Visit Provider Student in an Organized Health Care Education/Training Program
DX: E11.29 Type 2 diabetes mellitus with other diabetic kidney complication (principal); E66.01 Morbid (severe) obesity due to excess calories; R80.9 Proteinuria, unspecified
CPT/HCPCS: 36415; 82565; 83036; 84520

== ENCOUNTER → 2021-01-10 11:51 | Outpatient (CLI) | payer MEDICARE, SELFPAY ==
[2019-01-24 08:42] VITALS: BMI 32.8
[2021-01-10 13:00] LABS: BUN Creatinine Ratio 16.5 (6-22); Blood Urea Nitrogen 15 mg/dL (9-20); Estimated Glomerular Filt Rate > 60.0 mL/min (>60)
[2021-01-10 13:02] LABS: Hemoglobin A1C% w Est Avg Glu 7.9 % (4.0-6.0)
== END ==
PROVIDERS: PCP Student in an Organized Health Care Education/Training Program; Referring Provider Student in an Organized Health Care Education/Training Program; Visit Provider Student in an Organized Health Care Education/Training Program
DX: E11.29 Type 2 diabetes mellitus with other diabetic kidney complication (principal); R80.9 Proteinuria, unspecified
CPT/HCPCS: 36415; 82565; 83036; 84520

== ENCOUNTER → 2021-04-16 11:15 | Outpatient (CLI) | payer MEDICARE, SELFPAY ==
[2019-01-24 08:42] VITALS: BMI 32.8
[2021-04-16 12:35] LABS: Hemoglobin A1C% w Est Avg Glu 8.2 % (4.0-6.0)
[2021-04-16 12:53] LABS: Alanine Aminotransferase 66 IU/L (<50); Albumin 4.8 g/dL (3.5-5.0); Albumin Globulin Ratio 1.7 (1.0-2.8); Alkaline Phosphatase 87 U/L (38-126); Aspartate Aminotransferase 76 IU/L (17-59); BUN Creatinine Ratio 16.1 (6-22); Bilirubin Total 0.4 mg/dL (0.2-1.3); Blood Urea Nitrogen 15 mg/dL (9-20); Calcium 10.1 mg/dL (8.4-10.2); Carbon Dioxide 25 mmol/L (22-32); Chloride 100 mmol/L (98-107); Cholesterol 131 mg/dL (140-199); Estimated Glomerular Filt Rate > 60.0 mL/min (>60); Globulin 2.9 g/dL (1.7-4.1); Glucose 230 mg/dL (70-100); HDL Cholesterol 27 mg/dL (40-60); HEMOLYSIS < 15 (0-50); LDL Cholesterol Calculated 41 mg/dL (<100); Potassium 4.7 mmol/L (3.4-5.1); Sodium 137 mmol/L (137-145); Total Protein 7.7 g/dL (6.3-8.2); Triglycerides 313 mg/dL (35-150)
[2021-04-16 13:21] LABS: Prostate Specific Antigen Scrn 0.473 ng/mL (0.1-4.0)
[2021-04-16 13:47] LABS: Free T4, Direct Thyroxine 0.88 ng/dL (0.78-2.19)
== END ==
PROVIDERS: PCP Student in an Organized Health Care Education/Training Program; Referring Provider Student in an Organized Health Care Education/Training Program; Visit Provider Student in an Organized Health Care Education/Training Program
DX: E11.29 Type 2 diabetes mellitus with other diabetic kidney complication (principal); Z12.5 Encounter for screening for malignant neoplasm of prostate; E03.9 Hypothyroidism, unspecified; R80.9 Proteinuria, unspecified; I10 Essential (primary) hypertension; I25.10 Atherosclerotic heart disease of native coronary artery without angina pectoris
CPT/HCPCS: 36415; 80053; 80061; 83036; 84439; 84443; G0103

== ENCOUNTER → 2021-07-04 07:36 | Outpatient (CLI) | payer MEDICARE, SELFPAY ==
[2019-01-24 08:42] VITALS: BMI 32.8
[2021-07-04 08:47] LABS: Add Manual Diff / Slide Review NO; Basophils Absolute Auto 100 /uL (0-100); Basophils Percent Auto 0.7 % (0-2); Eosinophils Absolute Auto 200 /uL (0-450); Eosinophils Percent Auto 2.6 % (2-4); Hematocrit 41.4 % (41-53); Hemoglobin 13.8 g/dL (13.5-17.5); Lymphocytes Absolute Auto 2000 /uL (1100-4500); Lymphocytes Percent Auto 26.6 % (25-40); Mean Corpuscular HGB Conc 33.4 % (30-36); Mean Corpuscular Hemoglobin 30.3 PG (26-34); Mean Corpuscular Volume 90.7 fL (80-100); Monocytes Absolute Auto 500 /uL (0-900); Monocytes Percent Auto 7.1 % (3-14); Neutrophils Absolute Auto 4700 /uL (1500-7000); Platelet Count 259 X10^3/uL (150-400); Red Blood Cell Count 4.56 X10^6/uL (4.5-5.9); Red Cell Distribution Width 13.7 % (11.6-14.8); White Blood Cell Count 7.5 X10^3/uL (4.5-11.0)
[2021-07-04 08:57] LABS: Hemoglobin A1C% w Est Avg Glu 8.7 % (4.0-6.0)
[2021-07-04 09:23] LABS: Alanine Aminotransferase 62 IU/L (<50); Albumin 4.5 g/dL (3.5-5.0); Albumin Globulin Ratio 1.8 (1.0-2.8); Alkaline Phosphatase 84 U/L (38-126); Aspartate Aminotransferase 61 IU/L (17-59); BUN Creatinine Ratio 23.3 (6-22); Bilirubin Total 0.4 mg/dL (0.2-1.3); Bilirubin Unconjugated 0.3 mg/dL (0.0-1.1); Blood Urea Nitrogen 21 mg/dL (9-20); Cholesterol 125 mg/dL (140-199); Estimated Glomerular Filt Rate > 60 mL/min (>60); Globulin 2.5 g/dL (1.7-4.1); HDL Cholesterol 26 mg/dL (40-60); HEMOLYSIS < 15 (0-50); LDL Cholesterol Calculated 48 mg/dL (<100); Triglycerides 256 mg/dL (35-150)
[2021-07-04 10:25] LABS: Free T4, Direct Thyroxine 1.02 ng/dL (0.78-2.19)
== END ==
PROVIDERS: PCP Student in an Organized Health Care Education/Training Program; Referring Provider Internal Medicine Cardiovascular Disease; Visit Provider Internal Medicine Cardiovascular Disease
DX: E11.29 Type 2 diabetes mellitus with other diabetic kidney complication (principal); I25.10 Atherosclerotic heart disease of native coronary artery without angina pectoris; I10 Essential (primary) hypertension; R79.89 Other specified abnormal findings of blood chemistry; R80.9 Proteinuria, unspecified; E03.9 Hypothyroidism, unspecified
CPT/HCPCS: 36415; 80061; 80076; 82565; 83036; 84439; 84443; 84520; 85025

== ENCOUNTER → 2021-11-21 09:46 | Outpatient (CLI) | payer MEDICARE, SELFPAY ==
[2019-01-24 08:42] VITALS: BMI 32.8
[2021-11-21 11:22] LABS: Creatinine Urine Random 163.1 mg/dL
[2021-11-21 11:31] LABS: Microalbumi Creatinin Ratio Ur 32.4 ug/mg CR (<30); Microalbumin Urine Random 5.3 mg/dL (0-1.6)
[2021-11-21 12:35] LABS: Free T4, Direct Thyroxine 1.08 ng/dL (0.78-2.19)
== END ==
PROVIDERS: PCP Student in an Organized Health Care Education/Training Program; Referring Provider Student in an Organized Health Care Education/Training Program; Visit Provider Student in an Organized Health Care Education/Training Program
DX: E11.29 Type 2 diabetes mellitus with other diabetic kidney complication (principal); E03.9 Hypothyroidism, unspecified; R80.9 Proteinuria, unspecified
CPT/HCPCS: 36415; 82043; 82570; 83036; 84439; 84443

== ENCOUNTER → 2022-01-20 08:23 | Outpatient (CLI) | payer MEDICARE, SELFPAY ==
[2019-01-24 08:42] VITALS: BMI 32.8
[2022-01-20 10:15] LABS: BUN Creatinine Ratio 20.7 (6-22); Blood Urea Nitrogen 17 mg/dL (9-20); Estimated Glomerular Filt Rate > 60 mL/min (>60)
[2022-01-20 10:31] LABS: Free T3, Triiodothyronine Free 3.88 pg/mL (2.77-5.27); Free T4, Direct Thyroxine 1.14 ng/dL (0.78-2.19)
[2022-01-22 04:16] LABS: Fructosamine 343 umol/L (0-285)
== END ==
PROVIDERS: PCP Student in an Organized Health Care Education/Training Program; Referring Provider Student in an Organized Health Care Education/Training Program; Visit Provider Student in an Organized Health Care Education/Training Program
DX: E03.9 Hypothyroidism, unspecified (principal); E11.29 Type 2 diabetes mellitus with other diabetic kidney complication; R80.9 Proteinuria, unspecified
CPT/HCPCS: 36415; 82565; 82985; 84439; 84443; 84481; 84520

== ENCOUNTER → 2022-05-29 07:36 | Outpatient (CLI) | payer MEDICARE, SELFPAY ==
[2019-01-24 08:42] VITALS: BMI 32.8
[2022-05-29 09:15] LABS: Free T4, Direct Thyroxine 1.11 ng/dL (0.78-2.19)
[2022-05-30 06:04] LABS: Labcorp Hemoglobin (Hb) A1c 8.7 % (4.8-5.6)
== END ==
PROVIDERS: PCP Student in an Organized Health Care Education/Training Program; Referring Provider Student in an Organized Health Care Education/Training Program; Visit Provider Student in an Organized Health Care Education/Training Program
DX: E03.9 Hypothyroidism, unspecified; E11.29 Type 2 diabetes mellitus with other diabetic kidney complication
CPT/HCPCS: 36415; 83036; 84439; 84443

== ENCOUNTER → 2022-08-01 09:38 | Outpatient (CLI) | payer MEDICARE, SELFPAY ==
[2019-01-24 08:42] VITALS: BMI 32.8
--- NOTE | 2022-08-01 09:41 | DI.RAD.S_ITS ---
PROCEDURE: XR WRIST RT MIN 3V INDICATIONS: right wrist pain, scaphoid area pain TECHNIQUE: 4 views of the wrist were acquired. COMPARISON: None. FINDINGS: Bones: No fractures or dislocations. Mild osteoarthritic changes are noted along radial aspect of right wrist. No suspicious bony lesions. Scaphoid view: Linear radiolucency along lateral aspect of distal scaphoid is seen. Soft tissues: No suspicious soft tissue calcifications. 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 Linear lucency involving distal scaphoid which may represent a nutrient vessel. Subtle nondisplaced fracture cannot be entirely excluded. No evidence of avascular necrosis. Dictated by: Javi Murray M.D. on 08/01/2022 at 12:36 Approved by: Javi Murray M.D. on 08/01/2022 at 12:48
== END ==
PROVIDERS: PCP Student in an Organized Health Care Education/Training Program; Referring Provider Nurse Practitioner Family; Visit Provider Nurse Practitioner Family
DX: M19.031 Primary osteoarthritis, right wrist (principal); M25.531 Pain in right wrist
CPT/HCPCS: 73110

== ENCOUNTER → 2023-05-19 07:35 | Outpatient (CLI) | payer MEDICARE, SELFPAY ==
[2023-03-10 08:22] VITALS: BMI 32.8
[2023-05-19 09:03] LABS: Hemoglobin A1C% w Est Avg Glu 8.5 % (4.0-6.0)
[2023-05-19 09:09] LABS: Alanine Aminotransferase 53 IU/L (<50); Albumin 4.3 g/dL (3.5-5.0); Albumin Globulin Ratio 1.5 (1.0-2.8); Alkaline Phosphatase 97 U/L (38-126); Aspartate Aminotransferase 44 IU/L (17-59); BUN Creatinine Ratio 21.1 (6-22); Bilirubin Total 0.4 mg/dL (0.2-1.3); Blood Urea Nitrogen 20 mg/dL (9-20); Calcium 9.9 mg/dL (8.4-10.2); Carbon Dioxide 26 mmol/L (22-32); Chloride 105 mmol/L (98-107); Cholesterol 132 mg/dL (140-199); Estimated Glomerular Filt Rate > 60 mL/min (>60); Globulin 2.8 g/dL (1.7-4.1); Glucose 182 mg/dL (80-110); HDL Cholesterol 29 mg/dL (40-60); HEMOLYSIS < 15 (0-50); LDL Cholesterol Calculated 57 mg/dL (<100); Potassium 4.8 mmol/L (3.4-5.1); Sodium 138 mmol/L (137-145); Total Protein 7.1 g/dL (6.3-8.2); Triglycerides 231 mg/dL (35-150)
[2023-05-19 09:25] LABS: Free T3, Triiodothyronine Free 3.66 pg/mL (2.77-5.27); Free T4, Direct Thyroxine 1.11 ng/dL (0.78-2.19)
[2023-05-20 03:52] LABS: Fructosamine 280 umol/L (0-285)
== END ==
PROVIDERS: PCP Family Medicine; Referring Provider Family Medicine; Visit Provider Family Medicine
DX: E11.29 Type 2 diabetes mellitus with other diabetic kidney complication (principal); R80.9 Proteinuria, unspecified; E11.69 Type 2 diabetes mellitus with other specified complication; E78.5 Hyperlipidemia, unspecified; I10 Essential (primary) hypertension; E03.9 Hypothyroidism, unspecified; E66.01 Morbid (severe) obesity due to excess calories; I25.10 Atherosclerotic heart disease of native coronary artery without angina pectoris; M79.2 Neuralgia and neuritis, unspecified
CPT/HCPCS: 36415; 80053; 80061; 82985; 83036; 84439; 84443; 84481

== ENCOUNTER → 2023-11-09 07:24 | Outpatient (CLI) | payer OTHER, SELFPAY ==
[2023-03-10 08:22] VITALS: BMI 32.8
[2023-11-09 08:52] LABS: Add Manual Diff / Slide Review NO; Basophils Absolute Auto 100 /uL (0-100); Basophils Percent Auto 0.6 % (0-2); Eosinophils Absolute Auto 200 /uL (0-450); Eosinophils Percent Auto 2.4 % (2-4); Hemoglobin 13.7 g/dL (13.5-17.5); Lymphocytes Absolute Auto 2600 /uL (1100-4500); Mean Corpuscular HGB Conc 33.5 % (30-36); Mean Corpuscular Hemoglobin 30.4 PG (26-34); Mean Corpuscular Volume 90.8 fL (80-100); Monocytes Absolute Auto 600 /uL (0-900); Monocytes Percent Auto 6.5 % (3-14); Neutrophils Absolute Auto 5500 /uL (1500-7000); Neutrophils Percent Auto 61.5 % (50-75); Platelet Count 289 X10^3/uL (150-400); Red Blood Cell Count 4.51 X10^6/uL (4.5-5.9); Red Cell Distribution Width 13.3 % (11.6-14.8); White Blood Cell Count 8.9 X10^3/uL (4.5-11.0)
[2023-11-09 09:04] LABS: HEMOLYSIS < 15 (0-50)
[2023-11-09 09:09] LABS: BUN Creatinine Ratio 36.9 (6-22); Blood Urea Nitrogen 31 mg/dL (9-20); Calcium 10.3 mg/dL (8.4-10.2); Carbon Dioxide 24 mmol/L (22-32); Chloride 100 mmol/L (98-107); Cholesterol 133 mg/dL (140-199); Estimated Glomerular Filt Rate > 60 mL/min (>60); Glucose 172 mg/dL (80-110); HDL Cholesterol 26 mg/dL (40-60); LDL Cholesterol Calculated 46 mg/dL (<100); Potassium 4.4 mmol/L (3.4-5.1); Sodium 137 mmol/L (137-145); Triglycerides 305 mg/dL (35-150)
[2023-11-09 09:31] LABS: Hemoglobin A1C% w Est Avg Glu 8.2 % (4.0-6.0)
[2023-11-09 11:16] LABS: Prostate Specific Antigen 0.532 ng/mL (0.10-4.00)
== END ==
PROVIDERS: PCP Family Medicine; Referring Provider Family Medicine; Visit Provider Family Medicine
DX: E11.69 Type 2 diabetes mellitus with other specified complication (principal); E78.5 Hyperlipidemia, unspecified; E11.29 Type 2 diabetes mellitus with other diabetic kidney complication; R80.9 Proteinuria, unspecified
CPT/HCPCS: 80048; 80061; 83036; 84153; 85025

== ENCOUNTER → 2024-04-06 07:52 | Outpatient (CLI) | payer MEDICARE, SELFPAY ==
[2023-03-10 08:22] VITALS: BMI 32.8
[2024-04-06 08:51] LABS: Add Manual Diff / Slide Review NO; Basophils Absolute Auto 0 /uL (0-100); Basophils Percent Auto 0.3 % (0-2); Eosinophils Absolute Auto 100 /uL (0-450); Eosinophils Percent Auto 1.6 % (2-4); Hematocrit 45.7 % (41-53); Hemoglobin 15.1 g/dL (13.5-17.5); Lymphocytes Absolute Auto 2300 /uL (1100-4500); Lymphocytes Percent Auto 29.3 % (25-40); Mean Corpuscular Hemoglobin 30.3 PG (26-34); Mean Corpuscular Volume 91.8 fL (80-100); Monocytes Absolute Auto 500 /uL (0-900); Monocytes Percent Auto 6.8 % (3-14); Neutrophils Absolute Auto 4900 /uL (1500-7000); Platelet Count 263 X10^3/uL (150-400); Red Blood Cell Count 4.98 X10^6/uL (4.5-5.9); Red Cell Distribution Width 13.3 % (11.6-14.8); White Blood Cell Count 7.9 X10^3/uL (4.5-11.0)
[2024-04-06 08:59] LABS: Hemoglobin A1C% w Est Avg Glu 8.5 % (4.0-6.0)
[2024-04-06 09:29] LABS: Alanine Aminotransferase 70 IU/L (<50); Albumin 4.8 g/dL (3.5-5.0); Albumin Globulin Ratio 1.8 (1.0-2.8); Alkaline Phosphatase 72 U/L (38-126); Aspartate Aminotransferase 66 IU/L (17-59); BUN Creatinine Ratio 29.3 (6-22); Bilirubin Total 0.7 mg/dL (0.2-1.3); Blood Urea Nitrogen 29 mg/dL (9-20); Calcium 10.4 mg/dL (8.4-10.2); Carbon Dioxide 23 mmol/L (22-32); Chloride 102 mmol/L (98-107); Cholesterol 144 mg/dL (140-199); Estimated Glomerular Filt Rate > 60 mL/min (>60); Globulin 2.7 g/dL (1.7-4.1); Glucose 134 mg/dL (80-110); HDL Cholesterol 30 mg/dL (40-60); HEMOLYSIS 29 (0-50); LDL Cholesterol Calculated 57 mg/dL (<100); Potassium 4.5 mmol/L (3.4-5.1); Sodium 138 mmol/L (137-145); Total Protein 7.5 g/dL (6.3-8.2); Triglycerides 284 mg/dL (35-150)
[2024-04-06 09:58] LABS: TSH w/ Reflex to FT4 5.98 uIU/mL (0.47-4.68)
[2024-04-06 10:56] LABS: Free T4, Direct Thyroxine 1.07 ng/dL (0.78-2.19)
== END ==
PROVIDERS: PCP Family Medicine; Referring Provider Family Medicine; Visit Provider Family Medicine
DX: E03.9 Hypothyroidism, unspecified (principal); E11.9 Type 2 diabetes mellitus without complications; Z13.9 Encounter for screening, unspecified; Z79.4 Long term (current) use of insulin; E11.69 Type 2 diabetes mellitus with other specified complication; E78.5 Hyperlipidemia, unspecified; R79.89 Other specified abnormal findings of blood chemistry
CPT/HCPCS: 36415; 80053; 80061; 83036; 84439; 84443; 85025